=== PATIENT | female | born 1970 | race Two or more races ===

== ENCOUNTER 2016-06-13 12:28 | Emergency (ER) | payer SELFPAY ==
--- NOTE | 2016-06-13 12:39 | ER Document Report ---
ED Medical Screen (RME) - General Stated Complaint: HEADACHES,NECK PAIN,SHOULDER PAIN Time seen by provider: 12:37 Mode of Arrival: Ambulatory Information source: Patient Notes: 45-year-old female presents to ED for headache with pain to left shoulder arm and neck for the last 2 days. She just got over a virus. States she has not following her had any injuries. Denies fever nausea or vomiting. last menstrual period 06/09. I have greeted and performed a rapid initial assessment of this patient. A comprehensive ED assessment and evaluation of the patient, analysis of test results and completion of medical decision making process will be conducted by an additional ED providers. TRAVEL OUTSIDE OF THE [place] IN LAST 30 DAYS: No - Related Data Allergies/Adverse Reactions: No Known Allergies Allergy (Unverified 04/24/16 03:38)
[2016-06-13] MEDS ORDERED: ONDANSETRON 4 MG TAB.RAPDIS PO ONE (12:40)
[2016-06-13] MEDS ORDERED: IBUPROFEN 600 MG TABLET PO ONE (12:40)
[2016-06-13] MEDS ORDERED: CARISOPRODOL 350 MG TABLET PO ONE (16:02)
--- NOTE | 2016-06-13 16:03 | ER Document Report ---
ED Neck/Back Problem - General Mode of Arrival: Ambulatory TRAVEL OUTSIDE OF THE [place] IN LAST 30 DAYS: No <ELLIE HEART - Last Filed: 06/13/16 16:02> - HPI Patient complains to provider of: Pain, Neck Onset: Other Onset: Gradual Timing: Still present Quality of pain: Achy, Dull Severity: Mild Pain Level: 2 Exacerbated by: Movement of neck Relieved by: Nothing <BOLA OTOOLE - Last Filed: 06/13/16 23:26> - General Chief Complaint: Headache Stated Complaint: HEADACHES,NECK PAIN,SHOULDER PAIN Notes: Patient is a 45-year-old female who comes in complaining of left shoulder and neck pain. Patient feels somewhat better after medications given in triage. Denies any weakness or paresthesias. Denies any injuries. (BOLA OTOOLE) - Related Data Allergies/Adverse Reactions: No Known Allergies Allergy (Verified 06/13/16 12:38) Past Medical History - General Information source: Patient - Social History Smoking Status: Never Smoker Chew tobacco use (# tins/day): No Frequency of alcohol use: None Drug Abuse: None Family History: DM Patient has suicidal ideation: No Patient has homicidal ideation: No Renal/ Medical History: Denies: Hx Peritoneal Dialysis <ELLIE HERAT - Last Filed: 06/13/16 16:02> Review of Systems - Review of Systems Constitutional: No symptoms reported EENT: See HPI Cardiovascular: No symptoms reported Respiratory: No symptoms reported Gastrointestinal: No symptoms reported Genitourinary: No symptoms reported Female Genitourinary: No symptoms reported Musculoskeletal: No symptoms reported Skin: No symptoms reported Hematologic/Lymphatic: No symptoms reported Neurological/Psychological: No symptoms reported <BOLA OTOOLE - Last Filed: 06/13/16 23:26> Physical Exam - Vital signs Interpretation: Normal - General General appearance: Appears well, Alert - HEENT Head: Normocephalic, Atraumatic Eyes: Normal Pupils: PERRL - Respiratory Respiratory status: No respiratory distress Chest status: Nontender Breath sounds: Normal Chest palpation: Normal - Cardiovascular Rhythm: Regular Heart sounds: Normal auscultation Murmur: No - Abdominal Inspection: Normal Distension: No distension Bowel sounds: Normal Tenderness: Nontender Organomegaly: No organomegaly - Back Back: Normal, Tender - Tenderness to palpation over left trapezius left posterior neck. No midline tenderness - Extremities General upper extremity: Normal inspection, Nontender, Normal color, Normal ROM , Normal temperature General lower extremity: Normal inspection, Nontender, Normal color, Normal ROM , Normal temperature, Normal weight bearing. No: Tess's sign - Neurological Neuro grossly intact: Yes Cognition: Normal Orientation: AAOx4 [place] Coma Scale Eye Opening: Spontaneous Alberto Coma Scale Verbal: Oriented Alberto Coma Scale Motor: Obeys Commands [place] Coma Scale Total: 15 Speech: Normal Motor strength normal: LUE, RUE, LLE, RLE Sensory: Normal - Psychological Associated symptoms: Normal affect, Normal mood - Skin Skin Temperature: Warm Skin Moisture: Dry Skin Color: Normal <BOLA OTOOLE - Last Filed: 06/13/16 23:26> - Vital signs Vitals: Temp Pulse Resp BP Pulse Ox 98.0 F 68 16 106/67 98 06/13/16 12:37 06/13/16 12:37 06/13/16 12:37 06/13/16 12:37 06/13/16 12:37 (ELLIE HEART) (BOLA OTOOLE) Course <ELLIE HEART - Last Filed: 06/13/16 16:02> <BOLA OTOOLE - Last Filed: 06/13/16 23:26> - Re-evaluation Re-evalutation: 06/13/16 Patient will be discharged home with [facility]. No evidence for neuro vascular injury. Patient is to follow-up with her doctor. Stable for discharge. Return if any worsening or concerning symptoms. (BOLA OTOOLE) - Vital Signs Vital signs: Temp Pulse Resp BP Pulse Ox 97.6 F 57 L 16 110/67 99 06/13/16 16:15 06/13/16 16:15 06/13/16 12:37 06/13/16 16:15 06/13/16 16:15 (ELLIE HEART) (BOLA OTOOLE) Discharge <ELLIE HEART - Last Filed: 06/13/16 16:02> <BOLA OTOOLE - Last Filed: 06/13/16 23:26> - Discharge Clinical Impression: Neck muscle spasm Condition: Stable Disposition: HOME, SELF-CARE Instructions: Neck Injury (Cervical Strain) ([facility]), Muscle Strain ([facility]), Muscle Relaxers ([facility]) Prescriptions: Carisoprodol [Soma] 350 mg PO DAILYP PRN #14 tablet PRN Reason: Referrals: GITA RANDHAWA MD [[facility]UNITY BASED STAFF] - Follow up as needed Print Language: Swiss Scribe Attestation: 06/13/16 23:26 I personally performed the services described in the documentation, reviewed and edited the documentation which was dictated to the scribe in my presence, and it accurately records my words and actions. (BOLA OTOOLE)
[2016-06-13 16:17] VITALS: BP 110/67
== END 2016-06-13 16:17 | disposition home or self-care (01) ==
LOC: EDBD 12:28 → ER 12:28
DX: M62.838 Other muscle spasm (principal); M54.2 Cervicalgia; M25.511 Pain in right shoulder
CPT/HCPCS: 99283; J3490; S0119

== ENCOUNTER 2020-03-05 14:36 | Emergency (ER) | payer SELFPAY ==
--- NOTE | 2020-03-05 15:10 | ER Document Report ---
ED Medical Screen (RME) - General Chief Complaint: Chest Pain > 30 Stated Complaint: CHEST PAIN Time Seen by Provider: 03/05/20 15:00 Mode of Arrival: Wheelchair Information source: Patient, Relative Notes: 49-year-old female presented to ED for complaint of chest pain. She states she did fall a couple months ago at work but just started having the chest pain a couple days ago. She states she has had other pain since the fall but this first time she has had chest pain. She states she does lift and the pain gets much worse then. She states she does not have any history of blood pressure cholesterol or any other medical history. She states she does not smoke drink or use any illicit drugs. She is here with her daughter. Sharp pain to the left chest level 4. I have greeted and performed a rapid initial assessment of this patient. A comprehensive ED assessment and evaluation of the patient, analysis of test results and completion of medical decision making process will be conducted by an additional ED providers. TRAVEL OUTSIDE OF THE [place] IN LAST 30 DAYS: No - Related Data Allergies/Adverse Reactions: No Known Allergies Allergy (Verified 06/13/16 12:38) Past Medical History Renal/ Medical History: Denies: Hx Peritoneal Dialysis Physical Exam - Vital signs Vitals: Temp Pulse Resp BP Pulse Ox 98.3 F 59 L 16 111/63 99 03/05/20 14:57 03/05/20 14:57 03/05/20 14:57 03/05/20 14:57 03/05/20 14:57 Course - Vital Signs Vital signs: Temp Pulse Resp BP Pulse Ox 98.3 F 59 L 16 111/63 99 03/05/20 14:57 03/05/20 14:57 03/05/20 14:57 03/05/20 14:57 03/05/20 14:57
[2020-03-05 15:33] LABS: ABSOLUTE LYMPHOCYTES (AUTO) 1.2 10^3/uL (0.5-4.7); ABSOLUTE MONOCYTES (AUTO) 0.3 10^3/uL (0.1-1.4); ABSOLUTE NEUT (AUTO) 2.8 10^3/uL (1.7-8.2); BASOPHILS % (AUTO) 0.2 % (0-2); EOSINOPHILS % (AUTO) 0.4 % (0-6); HEMATOCRIT 40.6 % (36.0-47.0); HEMOGLOBIN 14.5 g/dL (12.0-15.5); LYMPHOCYTES % (AUTO) 26.7 % (13-45); MEAN CORPUSCULAR HEMOGLOBIN 31.7 pg (27.0-33.4); MEAN CORPUSCULAR HGB CONC 35.8 g/dL (32.0-36.0); MEAN CORPUSCULAR VOLUME 89 fl (80-97); MONOCYTES % (AUTO) 6.7 % (3-13); PLATELET COUNT 165 10^3/uL (150-450); RED BLOOD COUNT 4.58 10^6/uL (3.72-5.28); TOTAL CELLS COUNTED % (AUTO) 100 %; WHITE BLOOD COUNT 4.3 10^3/uL (4.0-10.5)
--- NOTE | 2020-03-05 15:42 | RADIOLOGY REPORT (SQ) ---
EXAM DESCRIPTION: CHEST 2 VIEWS IMAGES COMPLETED DATE/TIME: 03/05/2020 3:32 pm REASON FOR STUDY: chest pain COMPARISON: None. EXAM PARAMETERS: NUMBER OF VIEWS: two views TECHNIQUE: Digital Frontal and Lateral radiographic views of the chest acquired. RADIATION DOSE: NA LIMITATIONS: none FINDINGS: LUNGS AND PLEURA: No opacities, masses or pneumothorax. No pleural effusion. MEDIASTINUM AND HILAR STRUCTURES: No masses or contour abnormalities. HEART AND VASCULAR STRUCTURES: Heart normal size. No evidence for failure. BONES: No acute findings. HARDWARE: None in the chest. OTHER: No other significant finding. IMPRESSION: NO ACUTE RADIOGRAPHIC FINDING IN THE CHEST. TECHNICAL DOCUMENTATION: JOB ID: [id number] 2010 [employer]- All Rights Reserved Reading location - IP/workstation name: [email or web address]
[2020-03-05 16:04] LABS: ALBUMIN 4.5 g/dL (3.5-5.0); ALKALINE PHOSPHATASE 88 U/L (38-126); ANION GAP 10 (5-19); ASPARTATE AMINO TRANSFERASE 31 U/L (14-36); BILIRUBIN,DIRECT 0.1 mg/dL (0.0-0.4); BILIRUBIN,TOTAL 1.2 mg/dL (0.2-1.3); BLOOD UREA NITROGEN 25 mg/dL (7-20); CALCIUM 9.8 mg/dL (8.4-10.2); CARBON DIOXIDE 26 mmol/L (22-30); CHLORIDE 103 mmol/L (98-107); GLUCOSE 94 mg/dL (75-110); POTASSIUM 4.1 mmol/L (3.6-5.0); TOTAL PROTEIN 7.4 g/dL (6.3-8.2)
--- NOTE | 2020-03-05 18:51 | EKG REPORT ---
SEVERITY:- NORMAL ECG - SINUS BRADYCARDIA : Confirmed by: Geovani Harrington MD 05-Mar-2020 18:50:28
--- NOTE | 2020-03-06 00:43 | ER Document Report ---
ED General - General Chief Complaint: Chest Pain > 30 Stated Complaint: CHEST PAIN Time Seen by Provider: 03/05/20 15:00 Mode of Arrival: Wheelchair TRAVEL OUTSIDE OF THE [place] IN LAST 30 DAYS: No - HPI Notes: 49-year-old female presents with chest wall pain. Patient has been experiencing this pain for several months. States that it began after a Worker's Comp. injury, states that she fell backward onto some metal and injured her back. She states that she was sent to physical therapy and has since being discharged, however notes that while she was in physical therapy this made her chest pain worse. Chest pain is markedly worsened by lifting things over her head, is also occasionally made worse by sitting. She has never taken any medications for the pain. Pain is described as sharp. Is located on both sides of her chest. - Related Data Allergies/Adverse Reactions: No Known Allergies Allergy (Verified 06/13/16 12:38) Past Medical History - General Information source: Patient, Relative - Social History Smoking Status: Unknown if Ever Smoked Family History: DM Renal/ Medical History: Denies: Hx Peritoneal Dialysis Review of Systems - Review of Systems Constitutional: No symptoms reported EENT: No symptoms reported Cardiovascular: Chest pain Respiratory: No symptoms reported Gastrointestinal: No symptoms reported Genitourinary: No symptoms reported Female Genitourinary: No symptoms reported Musculoskeletal: Back pain Skin: No symptoms reported Hematologic/Lymphatic: No symptoms reported Neurological/Psychological: No symptoms reported Physical Exam - Vital signs Vitals: Temp Pulse Resp BP Pulse Ox 98.3 F 59 L 16 111/63 99 03/05/20 14:57 03/05/20 14:57 03/05/20 14:57 03/05/20 14:57 03/05/20 14:57 - General General appearance: Appears well, Alert In distress: None - HEENT Head: Normocephalic, Atraumatic Extraocular movements intact: Yes Pupils: PERRL - Respiratory Chest status: Tender - Bilateral parasternal and upper pectoral regions bilater ally Breath sounds: Normal - Cardiovascular Rhythm: Regular, Bradycardia Heart sounds: Normal auscultation - Abdominal Tenderness: Nontender - Back Back: Nontender - Extremities General lower extremity: No: Edema - Neurological Neuro grossly intact: Yes Cognition: Normal Orientation: AAOx4 - Psychological Associated symptoms: Normal affect - Skin Skin Temperature: Warm Course - Re-evaluation Re-evalutation: 49-year-old female here with months of daily parasternal chest tenderness exacerbated by lifting or touching the area. Seems to of all started after a lower back injury. Patient is a well-appearing on exam, mild sinus bradycardia with normal blood pressure. She does have marked tenderness to the parasternal areas. EKG is nonischemic. Had a laboratory evaluation which was overall unremarkable including a negative troponin, 1 troponin sufficient given the duration of her symptoms. She was given Toradol and a lidocaine patch. Discussed with patient that this is likely a musculoskeletal origin. Encouraged her to take NSAIDs in order to help peer return precautions given, patient stable at time of discharge. - Vital Signs Vital signs: Temp Pulse Resp BP Pulse Ox 98.3 F 59 L 13 118/84 96 03/05/20 14:57 03/05/20 14:57 03/06/20 02:01 03/06/20 02:01 03/06/20 02:01 - Laboratory Result Diagrams: 03/05/20 15:17 03/05/20 15:17 Laboratory results interpreted by me: 03/05/20 15:17 BUN 25 H - Diagnostic Test Radiology reviewed: Image reviewed, Reports reviewed - EKG Interpretation by Me Additional EKG results interpreted by me: EKG is interpreted by me. Mild sinus bradycardia, rate 59. Narrow QRS, QTC w ithin normal limits. No ST segment elevation. Discharge - Discharge Clinical Impression: Chest wall pain Disposition: HOME, SELF-CARE Instructions: Anti-Inflammatory Medication ([facility]), Aspirin (Cardiac) ([facility]) Additional Instructions: Please begin use of ibuprofen. You may purchase lidocaine patches [id number]. Please follow-up with a primary care doctor peer return to the emergency department for any concerning worsening symptoms. Forms: Parent Work Note Print Language: Ukrainian
[2020-03-06] MEDS ORDERED: KETOROLAC TROMETHAMINE INJ/PF 30 MG/1 ML SDV IV ONE (00:45)
[2020-03-06] MEDS ORDERED: KETOROLAC TROMETHAMINE INJ/PF 30 MG/1 ML SDV IM ONE (00:55)
[2020-03-06] MEDS ORDERED: LIDOCAINE 5% (700 MG) TRANSDERMAL ADH..PATCH TP ONE (00:55)
[2020-03-06 02:27] VITALS: BP 118/84
== END 2020-03-06 02:32 | disposition home or self-care (01) ==
LOC: ER 14:36
DX: R07.89 Other chest pain (principal); M54.9 Dorsalgia, unspecified; R00.1 Bradycardia, unspecified; W19.XXXA Unspecified fall, initial encounter
CPT/HCPCS: 93005; 99285; 96372; 36415; 83735; 85025; 80053; 84484; 71046; 93010; J1885